=== PATIENT | female | born 1950 | race Caucasian/White ===

== ENCOUNTER → 2017-12-25 09:41 | Outpatient (CLI) | payer OTHER, MEDICAID, SELFPAY ==
--- NOTE | 2017-12-25 | DI.MG.S_ITS ---
BILATERAL DIGITAL DIAGNOSTIC MAMMOGRAM 3D/2D: 12/25/2017 CLINICAL: Bilateral breast pain. Baseline by default. No prior exams were available for comparison. The tissue of both breasts is heterogeneously dense. This may lower the sensitivity of mammography. No significant masses, calcifications, or other findings are seen in either breast. IMPRESSION: INCOMPLETE: NEEDS ADDITIONAL IMAGING EVALUATION There is no abnormality seen in either breast to correspond with the area of clinical concern, however, ultrasound is recommended. This exam was interpreted at Station ID: [id number]. NOTE: For mammograms, a report in lay terms will be sent to the patient. Approximately 15% of breast malignancies will not be visualized mammographically. In the management of a palpable breast mass, a negative mammogram must not discourage biopsy of a clinically suspicious lesion. Electronically Signed By: Kain babin/faye:12/25/2017 12:53:19 ACR BI-RADS Category 0: Incomplete [id number]
--- NOTE | 2017-12-25 | DI.US.S_ITS ---
ULTRASOUND OF LEFT BREAST: 12/25/2017 CLINICAL: Focal left breast pain. [facility] the left breast was performed. Marroquin scale images of the real-time examination were reviewed. IMPRESSION: NEGATIVE There is no sonographic evidence of malignancy. There is no abnormality seen in either breast to correspond with the area of clinical concern, however, clinical followup is recommended. A 1 year screening mammogram is recommended. This exam was interpreted at Station ID: [id number]. Electronically Signed By: Kain babin/faye:12/25/2017 12:54:45 Ultrasound BI-RADS: 1 Negative
--- NOTE | 2017-12-25 | DI.US.S_ITS ---
ULTRASOUND OF RIGHT BREAST: 12/25/2017 CLINICAL: Focal right breast pain. Comparison is made to exam dated: 12/25/2017 [facility]. Color flow ultrasound of the right breast was performed. Marroquin scale images of the real-time examination were reviewed. IMPRESSION: NEGATIVE There is no sonographic evidence of malignancy. There is no abnormality seen in either breast to correspond with the area of clinical concern, however, clinical followup is recommended. A 1 year screening mammogram is recommended. This exam was interpreted at Station ID: [id number]. Electronically Signed By: Kain babin/faye:12/25/2017 12:54:00 letter sent: Clinical Evaluation Ultrasound BI-RADS: 1 Negative
== END ==
PROVIDERS: PCP Family Medicine; Visit Provider Family Medicine
DX: R92.8 Other abnormal and inconclusive findings on diagnostic imaging of breast (principal); N64.4 Mastodynia
CPT/HCPCS: 76642; 77066; G0279

== ENCOUNTER → 2018-03-14 08:35 | Outpatient (CLI) | payer OTHER, SELFPAY ==
--- NOTE | 2018-03-14 | DI.RAD.S_ITS ---
PROCEDURE: XR CERVICAL SPINE 4V OR 5V INDICATIONS: NECK PAIN TECHNIQUE: 6 views of the cervical spine were acquired. COMPARISON: None. FINDINGS: Bones: No fractures or dislocations to the C7 level. ACDF from C5-C7. Hardware appears intact. Diffuse facet arthropathy. Mild narrowing of the remaining cervical disc spaces. Trace anterolisthesis of C2 on C3, C3 on C4 and C4 on C5. Mild levocurvature No suspicious bony lesions. No definite abnormal motion with flexion and extension lateral views. Soft tissues: Prevertebral soft tissues are normal in thickness. IMPRESSION: Status post C5-C7 ACDF. Mild disc degeneration throughout the remainder of the cervical spine. Trace anterolisthesis of C2 on C3, C3 on C4 and C4 on C5. No evidence of abnormal motion with flexion and extension lateral views. Diffuse facet arthropathy. Mild levocurvature. Dictated by: Braden Arevalo M.D. on 03/14/2018 at 12:01 Approved by: Braden Arevalo M.D. on 03/14/2018 at 12:04
== END ==
PROVIDERS: PCP Family Medicine; Visit Provider Neurological Surgery
DX: M54.2 Cervicalgia (principal)
CPT/HCPCS: 72050

== ENCOUNTER → 2019-10-09 11:05 | Outpatient (CLI) | payer MEDICARE, MEDICAID, SELFPAY ==
--- NOTE | 2019-10-09 | DI.US.S_ITS ---
PROCEDURE: US PERIPH VENOUS LOW EXTREM LT INDICATIONS: LOCALIZED EDEMA TECHNIQUE: Real-time imaging, as well as color and pulse Doppler interrogation, were performed of the lower extremity deep veins from the inguinal ligament to the popliteal fossa. COMPARISON: None. FINDINGS: The common femoral, femoral and popliteal veins are normally compressible, and free of intraluminal thrombus. Color and pulse Doppler demonstrate normal phasic intraluminal flow. There is normal augmentation response to distal compression maneuver. IMPRESSION: Negative for deep venous thrombosis. Dictated by: Nilo Pappas M.D. on 10/09/2019 at 11:23 Approved by: Nilo Pappas M.D. on 10/09/2019 at 11:24
== END ==
PROVIDERS: PCP Family Medicine; Referring Provider Family Medicine; Visit Provider Family Medicine
DX: R60.0 Localized edema (principal)
CPT/HCPCS: 93971

== ENCOUNTER → 2020-12-15 11:40 | Outpatient (CLI) | payer MEDICARE, MEDICAID, SELFPAY ==
[2020-12-15 20:21] LABS: COVID19 - ORCAS (NP or Nasal) Negative (Negative)
== END ==
PROVIDERS: PCP Family Medicine; Visit Provider Physician Assistant
DX: Z20.822 Contact with and (suspected) exposure to COVID-19 (principal)
CPT/HCPCS: C9803; U0003

== ENCOUNTER → 2020-12-16 09:43 | Outpatient (CLI) | payer MEDICARE, MEDICAID, SELFPAY ==
--- NOTE | 2020-12-17 19:39 | DI.NM.S_ITS ---
DATE OF SERVICE: PROCEDURE: Pharmacological perfusion study. INDICATIONS: History of retrosternal chest discomfort with known history of coronary artery disease status post RCA stent in remote past, as well as some diagonal disease, diabetes mellitus, hypertension and hyperlipidemia. RADIOPHARMACEUTICAL: 27.3 millicurie technetium-99m Myoview IV was injected at stress and 26.6 millicurie technetium-99m Myoview IV was injected at rest. CARDIAC STRESS: The patient underwent IV Lexiscan perfusion study under the supervision of an attending staff using standard intravenous Lexiscan, as per protocol. She remained hemodynamically stable. No chest pain. Developed very mild shortness of breath. Baseline blood pressure was 144/80 and resting heart rate 64. Maximum heart rate 92. Blood pressure remained stable. Baseline EKG revealed sinus rhythm. During stress, there were no convincing ischemic changes. No significant arrhythmias seen. RAW DATA: There was breast shadow seen. GATED STUDY: Resting LV ejection fraction 92 and stress LV ejection fraction 94 percent. No obvious wall motion abnormalities. Resting end-diastolic volume 90 mL. TID ratio 0.76, which is within normal limits. Lung/heart ratio 0.32, which is within normal limits. MYOCARDIAL PERFUSION SCAN: Please note, the patient does not have any stress prone images. Stress supine and resting supine images were compared to each other. Resting supine images revealed minimally decreased perfusion of mid anterior wall. However, stress supine images revealed normal myocardial perfusion. I do not see any convincing reversible ischemia or infarction pattern. CONCLUSION: I will call this study a normal myocardial perfusion study, as stress supine images revealed normal myocardial perfusion. Hyperdynamic left ventricle. No transient ischemic dilatation. Lung/heart ratio within normal limits. Overall, this is a low-risk myocardial perfusion scan. Shayna Velasquez - CRISTINA/tarun/kobe doc#: [id number]/job#: [id number] dd: 12/17/2020 16:58:00 dt: 12/17/2020 19:11:00 DICTATING MD/COPIES TO: Amada Alejandre MD COPIES MNE: RAMIRO;
== END ==
PROVIDERS: PCP Family Medicine; Referring Provider Internal Medicine Cardiovascular Disease; Visit Provider Internal Medicine Cardiovascular Disease
DX: R07.89 Other chest pain (principal); I25.10 Atherosclerotic heart disease of native coronary artery without angina pectoris; E11.9 Type 2 diabetes mellitus without complications; I10 Essential (primary) hypertension; E78.5 Hyperlipidemia, unspecified; Z95.5 Presence of coronary angioplasty implant and graft
CPT/HCPCS: 78452; 93017; A9502; J2785